=== PATIENT | female | born 1985 | race Caucasian/White ===

== ENCOUNTER 2017-10-16 16:03 | Emergency (ER) | payer OTHER ==
[2017-10-16 16:09] VITALS: BP 137/79; PULSE 98; TEMP 97; BMI 37.0
[2017-10-16] MEDS ORDERED: IBUPROFEN 400 MG TABLET (FP) PO ONE ×2 (16:28)
--- NOTE | 2017-10-16 16:33 | PDOC ---
History of Present Illness - General Chief Complaint: Pain Stated Complaint: RT KNEE PAIN Time Seen by Provider: 10/16/17 16:21 History Source: Patient Exam Limitations: No Limitations - History of Present Illness Initial Comments: 10/16/17 16:28 32 yr female with pain to the right knee for 3 yrs after fall on sidewalk. Pt states she has been seen by orthopedist on and off had MRI of the knee done 7 months ago. Pt dx with "torn ligament" . Pt states 4 days ago she "banged her knee" on the wall in her bathroom. Pt did not take any meds today for pain. Severity: Yes: mild Past History - Past Medical History Allergies/Adverse Reactions: Allergies Allergy/AdvReac Type Severity Reaction Status Date / Time No Known Allergies Allergy Verified 10/16/17 16:08 Home Medications: Ambulatory Orders NK [No Known Home Medication] 10/16/17 Anemia: Yes COPD: No - Reproductive History (#): 1 Para: 1 - Suicide/Smoking/Psychosocial Hx Smoking Status: No Smoking History: Never smoked Number of Cigarettes Smoked Daily: 0 Hx Alcohol Use: Yes (OCCASIONALLY) Drug/Substance Use Hx: No *Physical Exam - Vital Signs Last Vital Signs Temp Pulse Resp BP Pulse Ox 97 F L 98 H 18 137/79 99 10/16/17 16:05 10/16/17 16:05 10/16/17 16:05 10/16/17 16:05 10/16/17 16:05 - Physical Exam General Appearance: Yes: Nourished, Appropriately Dressed HEENT: positive: EOMI, SEJAL Neck: positive: Supple. negative: Tender Respiratory/Chest: negative: Chest Tender Gastrointestinal/Abdominal: negative: Normal Bowel Sounds, Soft Musculoskeletal: positive: Normal Inspection Extremity: positive: Normal Capillary Refill, Normal Inspection, Tender ( lateral right knee ,) ED Treatment Course - RADIOLOGY Radiology Studies Ordered: Category Date Time Status KNEE 3 POS-RIGHT [RAD] Stat Radiology 10/16/17 16:27 Ordered Medical Decision Making - Medical Decision Making 10/16/17 16:30 cc: pain to the knee right acute on chronic no deformity no swelling tender to touch to the lateral knee 10/16/17 16:35 pt refused knee immobilizer refused daniel wrap will give ibuprofen, xray and ortho referal son and the pt agree with plan of care all questions asked and answered. pt ambulatory with no acute distress 10/16/17 19:42 *DC/Admit/Observation/Transfer Diagnosis at time of Disposition: Knee pain, chronic Qualifiers: Laterality: right Qualified Code(s): M25.561 - Pain in right knee - Discharge Dispostion Disposition: HOME Condition at time of disposition: Good - Referrals Referrals: Lauro Salazar MD [Staff Physician] - - Patient Instructions Additional Instructions: follow with or for follow up elevate and apply ice every 2hrs for 20 minutes then apply a warm compress for about 20-30 minutes take ibuprofen every 8hrs for pain as directed (over the counter) - Post Discharge Activity
== END 2017-10-16 16:48 | disposition home or self-care (01) ==
LOC: JERFT 16:03
DX: M25.561 Pain in right knee (principal); W22.01XA Walked into wall, initial encounter; Y93.89 Activity, other specified; Y92.031 Bathroom in apartment as the place of occurrence of the external cause; Y99.8 Other external cause status
CPT/HCPCS: 73562-TC-RT-FY; 99281-25

== ENCOUNTER 2018-02-15 22:43 | Inpatient (IN) | payer OTHER ==
[2018-02-15 22:56] VITALS: BMI 39.0
[2018-02-16] MEDS ORDERED: SODIUM CHLORIDE 1,000 ML IV STA (03:48)
--- NOTE | 2018-02-16 03:49 | PDOC ---
History of Present Illness - General Chief Complaint: Pain Stated Complaint: NAUSEA/VOMITING Time Seen by Provider: 02/16/18 03:25 History Source: Patient - History of Present Illness Initial Comments: 02/16/18 06:54 32 year old female c/o RUQ pain, with nausea/ vomiting for 3 days. denies fever / chills reports feeling " hot" . denies flank pain, urinary symptoms, chest pain Past History - Past Medical History Allergies/Adverse Reactions: Allergies Allergy/AdvReac Type Severity Reaction Status Date / Time No Known Allergies Allergy Verified 02/15/18 22:48 Home Medications: Ambulatory Orders oxyCODONE HCL [Roxicodone -] 5 mg PO Q6H #10 tablet MDD 5 02/16/18 Anemia: Yes COPD: No - Reproductive History (#): 1 Para: 1 - Suicide/Smoking/Psychosocial Hx Smoking Status: No Smoking History: Never smoked Number of Cigarettes Smoked Daily: 0 Hx Alcohol Use: Yes (OCCASIONALLY) Drug/Substance Use Hx: No Review of Systems - Review of Systems Able to Perform ROS?: Yes Is the patient limited Portuguese proficient: No Constitutional: No: Symptoms Reported, See HPI, Chills, Diaphoresis, Fever, Loss of Appetite, Malaise, Night Sweats, Weakness, Weight Stable, Unintentional Wgt. Loss, Unexplained wgt Loss, Other ABD/GI: Yes: Nausea, Vomiting, Abdominal cramping : No: Symptoms Reported, See HPI, Burning, Dysuria, Discharge, Frequency, Flank Pain, Hematuria, Incontinence, Pain, Urgency, Testicular Mass, Testicular Swelling, Lesions, Testicular Pain, Other *Physical Exam - Vital Signs Last Vital Signs Temp Pulse Resp BP Pulse Ox 98.6 F 102 H 18 147/79 98 02/15/18 22:45 02/15/18 22:45 02/15/18 22:45 02/15/18 22:45 02/15/18 22:45 - Physical Exam General Appearance: Yes: Appropriately Dressed Gastrointestinal/Abdominal: positive: Normal Bowel Sounds, Tender (RUQ ), Soft Extremity: positive: Normal Capillary Refill, Normal Inspection, Normal Range of Motion Integumentary: positive: Normal Color, Dry, Warm Neurologic: 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: market development analyst II-XII NML intact, Fully Oriented, Alert, Normal Mood/ Affect ED Treatment Course - LABORATORY CBC & Chemistry Diagram: 02/17/18 06:50 02/17/18 06:50 Progress Note - Progress Note Progress Note: A: RUQ pain r/o cholecystitis P: cbc cmp IVF Zofran pain control patient signed out to aSe [facility]AN pending US *DC/Admit/Observation/Transfer Diagnosis at time of Disposition: Right upper quadrant abdominal pain, Cholecystitis - Discharge Dispostion Disposition: HOME Condition at time of disposition: Improved - Prescriptions - Referrals - Patient Instructions - Post Discharge Activity
[2018-02-16] MEDS ORDERED: ONDANSETRON 4 MG/2 ML VIAL IVPUSH ONE (04:00)
[2018-02-16 04:47] LABS: BASO % 0.4 % (0-2.0); EOS % 0.4 % (0-4.5); HEMOGLOBIN 13.3 GM/dL (10.7-15.3); LYMPH % 7.3 % (8-40); MCH 27.3 pg (25.7-33.7); MCHC 33.2 g/dl (32.0-36.0); MEAN CELL VOLUME 82.2 fl (80-96); MEAN PLT VOLUME 7.5 fl (7.5-11.1); MONO % 4.5 % (3.8-10.2); NEUT % 87.4 % (42.8-82.8); PLATELET COUNT 294 K/MM3 (134-434); RBC 4.86 M/mm3 (3.60-5.2); RDW 15.3 % (11.6-15.6); WHITE BLOOD COUNT 12.1 K/mm3 (4.0-10.0)
[2018-02-16 05:18] LABS: URINE APPEARANCE SLCLOUDY; URINE BILIRUBIN NEGATIVE (<2.0 mg/dL); URINE COLOR YELLOW; URINE GLUCOSE (UA) NEGATIVE (NEGATIVE); URINE KETONE NEGATIVE (NEGATIVE); URINE NITRITE NEGATIVE (NEGATIVE); URINE PROTEIN NEGATIVE (NEGATIVE); URINE UROBILINOGEN NEGATIVE mg/dL (0.2-1.0)
[2018-02-16 05:22] LABS: URINE LEUK ESTERASE 1+ (NEGATIVE)
[2018-02-16 05:23] LABS: EPI CELLS RARE /HPF (FEW); URINE BACTERIA RARE /hpf (NONE SEEN); URINE MUCUS MODERATE
[2018-02-16 05:28] LABS: ALBUMIN 3.5 g/dl (3.4-5.0); ALK PHOS 128 U/L (45-117); ANION GAP 7 MMOL/L (8-16); BILIRUBIN,TOTAL 0.4 mg/dL (0.2-1); BLOOD UREA NITROGEN 8 mg/dL (7-18); CALCIUM 8.5 mg/dL (8.5-10.1); CHLORIDE 105 mmol/L (98-107); CO2 27 mmol/L (21-32); CREATININE 0.5 mg/dL (0.55-1.3); GLUCOSE,RANDOM 103 mg/dL (74-106); LIPASE 73 U/L (73-393); POTASSIUM 3.4 mmol/L (3.5-5.1); SGOT/AST 20 U/L (15-37); SGPT/ALT 38 U/L (13-61); SODIUM 139 mmol/L (136-145); TOT PROT 7.2 g/dl (6.4-8.2)
--- NOTE | 2018-02-16 07:23 | PDOC ---
*Physical Exam - Vital Signs Last Vital Signs Temp Pulse Resp BP Pulse Ox 98.0 F 88 18 146/74 98 02/16/18 06:06 02/16/18 06:06 02/16/18 06:06 02/16/18 06:06 02/16/18 06:06 ED Treatment Course - LABORATORY CBC & Chemistry Diagram: 02/16/18 04:32 02/16/18 04:32 - ADDITIONAL ORDERS Additional order review: Laboratory Results 02/16/18 02/16/18 05:13 04:32 Sodium 139 Potassium 3.4 L Chloride 105 Carbon Dioxide 27 Anion Gap 7 L BUN 8 Creatinine 0.5 L Creat Clearance w eGFR > 60 Random Glucose 103 Calcium 8.5 Total Bilirubin 0.4 AST 20 ALT 38 Alkaline Phosphatase 128 H Total Protein 7.2 Albumin 3.5 Lipase 73 Urine Color Yellow Urine Appearance Slcloudy Urine pH 6.0 Ur Specific [place] 1.016 Urine Protein Negative Urine Glucose (UA) Negative Urine Ketones Negative Urine Blood 2+ H Urine Nitrite Negative Urine Bilirubin Negative Urine Urobilinogen Negative Ur Leukocyte Esterase 1+ H Urine WBC (Auto) 17 Urine RBC (Auto) 3 Ur Epithelial Cells Rare Urine Bacteria Rare Urine Mucus Moderate 02/16/18 04:32 RBC 4.86 MCV 82.2 MCHC 33.2 RDW 15.3 D MPV 7.5 Neutrophils % 87.4 H D Lymphocytes % 7.3 L D Monocytes % 4.5 Eosinophils % 0.4 D Basophils % 0.4 - Medications Given in the ED: ED Medications Discontinued Medications Generic Name Dose Route Start Last Admin Trade Name Freq PRN Reason Stop Dose Admin Sodium Chloride 1,000 mls @ 1,000 mls/hr 02/16/18 03:48 02/16/18 03:50 Normal Saline - IV 02/16/18 04:47 1,000 mls/hr ASDIR STA Administration Ondansetron HCl 4 mg 02/16/18 04:00 02/16/18 04:05 Zofran Injection IVPUSH 02/16/18 04:01 4 mg ONCE ONE Administration Medical Decision Making - Medical Decision Making 02/16/18 07:25 Patient received from DUSTIN Thomson. Briefly, this is a healthy 32-year-old female with 3 days of RUQ pain, worse after eating. Subjective fever. Labs notable for WBC 12.1. HR 102. Pending u/s to r/o cholecystitis. As patient has been in ED >8h awaiting u/s, will place in ED Observation. 02/16/18 09:49 U/s with 3cm gallstone and wall thickening. Discussed with Dr. Cullen who will take to OR, possibly today. Requests Cefazolin. Morphine given. *DC/Admit/Observation/Transfer Diagnosis at time of Disposition: Right upper quadrant abdominal pain, Cholecystitis - Discharge Dispostion Condition at time of disposition: Guarded Decision to Admit order: Yes - Referrals - Patient Instructions - Post Discharge Activity
[2018-02-16] MEDS ORDERED: morphine CARPU-JECT 4 MG/1 ML DISP.SYRIN IVPUSH ONE (07:38)
--- NOTE | 2018-02-16 08:51 | HP ---
CHIEF COMPLAINT:Abdominal pain PCP:none HISTORY OF PRESENT ILLNESS: 32F denies PMH presents to the ER with 3 day history of nausea vomiting and abdominal pain after eating. Patient is Bruneian speaking and presents with her daughter who speaks Cuban and Bruneian. She states her mild pain progressed to severe pain and eventually she started to become nauseated and vomited. She vomited NB/NB recently ingested food. She denies fever but felt hot on and off for the past 2 days. She denies fever, chest pain, shortness of breath, lower extremity edema, or urinary symptoms. Daughter states her mother does not eat a "healthy diet". She deies being on medications. Endorses she had a history of oophrectomy due to cancer. ER course was notable for: (1)Labs (2)IVF (3)ABx RUQ US Recent Travel:Denies PAST MEDICAL HISTORY: questionable ovarian Ca PAST SURGICAL HISTORY:oophrectomy Social History: Smoking:Denies Alcohol:Denies Drugs: Denies Family History: Allergies No Known Allergies Allergy (Verified 02/15/18 22:48) HOME MEDICATIONS: Home Medications Medication Instructions Recorded NK [No Known Home Medication] 10/16/17 REVIEW OF SYSTEMS CONSTITUTIONAL: Absent: fever,diaphoresis, generalized weakness, malaise, loss of appetite, weight change Present: chills HEENT: Absent: rhinorrhea, nasal congestion, throat pain, throat swelling, difficulty swallowing, mouth swelling, ear pain, eye pain, visual changes CARDIOVASCULAR: Absent: chest pain, syncope, palpitations, irregular heart rate, lightheadedness , peripheral edema RESPIRATORY: Absent: cough, shortness of breath, dyspnea with exertion, orthopnea, wheezing, stridor, hemoptysis GASTROINTESTINAL: Absent: abdominal distension, diarrhea, constipation, melena, hematochezia Present: abdominal pain, nausea, vomiting GENITOURINARY: Absent: dysuria, frequency, urgency, hesitancy, hematuria, flank pain, genital pain MUSCULOSKELETAL: Absent: myalgia, arthralgia, joint swelling, back pain, neck pain SKIN: Absent: rash, itching, pallor HEMATOLOGIC/IMMUNOLOGIC: Absent: easy bleeding, easy bruising, lymphadenopathy, frequent infections ENDOCRINE: Absent: unexplained weight gain, unexplained weight loss, heat intolerance, cold intolerance NEUROLOGIC: Absent: headache, focal weakness or paresthesias, dizziness, unsteady gait, seizure, mental status changes, bladder or bowel incontinence PSYCHIATRIC: Absent: anxiety, depression, suicidal or homicidal ideation, hallucinations. PHYSICAL EXAMINATION Vital Signs - 24 hr 02/15/18 02/16/18 02/16/18 22:45 03:30 06:06 Temperature 98.6 F 98.4 F 98.0 F Pulse Rate 102 H Pulse Rate [ 98 H 88 Left Radial] Respiratory 18 18 18 Rate Blood Pressure 147/79 Blood Pressure 148/82 146/74 [Left Arm] O2 Sat by Pulse 98 98 98 Oximetry (%) 02/16/18 08:36 Temperature 99.2 F Pulse Rate Pulse Rate [ 95 H Left Radial] Respiratory 16 Rate Blood Pressure Blood Pressure 140/96 [Left Arm] O2 Sat by Pulse 99 Oximetry (%) GENERAL: Awake, alert, and fully oriented, in no acute distress. HEAD: Normal with no signs of trauma. EYES: Pupils equal, round and reactive to light, extraocular movements intact, sclera anicteric, conjunctiva clear. No lid lag. EARS, NOSE, THROAT: Ears normal, nares patent, oropharynx clear without exudates. Moist mucous membranes. NECK: Normal range of motion, supple without lymphadenopathy, JVD, or masses. LUNGS: Breath sounds equal, clear to auscultation bilaterally. No wheezes, and no crackles. No accessory muscle use. HEART: Regular rate and rhythm, normal S1 and S2 without murmur, rub or gallop. ABDOMEN: Soft, nontender, not distended, normoactive bowel sounds, no guarding, no rebound, no masses. No hepatomegaly or splenomegaly. MUSCULOSKELETAL: Normal range of motion at all joints. No bony deformities or tenderness. No CVA tenderness. UPPER EXTREMITIES: 2+ pulses, warm, well-perfused. No cyanosis. No clubbing. No peripheral edema. LOWER EXTREMITIES: 2+ pulses, warm, well-perfused. No calf tenderness. No peripheral edema. NEUROLOGICAL: Cranial nerves II-XII intact. Normal speech. Normal gait. PSYCHIATRIC: Cooperative. Good eye contact. Appropriate mood and affect. SKIN: Warm, dry, normal turgor, no rashes or lesions noted, normal capillary refill. Laboratory Results - last 24 hr 02/16/18 02/16/18 02/16/18 04:32 04:32 05:13 WBC 12.1 H RBC 4.86 Hgb 13.3 Hct 40.0 D MCV 82.2 MCH 27.3 D MCHC 33.2 RDW 15.3 D Plt Count 294 MPV 7.5 Absolute Neuts (auto) 10.6 H Neutrophils % 87.4 H D Lymphocytes % 7.3 L D Monocytes % 4.5 Eosinophils % 0.4 D Basophils % 0.4 Nucleated RBC % 0 Sodium 139 Potassium 3.4 L Chloride 105 Carbon Dioxide 27 Anion Gap 7 L BUN 8 Creatinine 0.5 L Creat Clearance w eGFR > 60 Random Glucose 103 Calcium 8.5 Total Bilirubin 0.4 AST 20 ALT 38 Alkaline Phosphatase 128 H Total Protein 7.2 Albumin 3.5 Lipase 73 Urine Color Yellow Urine Appearance Slcloudy Urine pH 6.0 Ur Specific [place] 1.016 Urine Protein Negative Urine Glucose (UA) Negative Urine Ketones Negative Urine Blood 2+ H Urine Nitrite Negative Urine Bilirubin Negative Urine Urobilinogen Negative Ur Leukocyte Esterase 1+ H Urine WBC (Auto) 17 Urine RBC (Auto) 3 Ur Epithelial Cells Rare Urine Bacteria Rare Urine Mucus Moderate RUQ US: GB wall thickening, no pericholecystic fluid. 3mm stone ASSESSMENT/PLAN: 32F with abdominal pain found to have symptomatic biliary colic and cholecystitis: sepsis from acute cholecystitis:patient may also have a component of symptomatic biliary colic patient had HR >90 WBC>12 Admit to inpatient med/surg seen by Dr. murry who will take patient to the OR today for laparoscopic cholecystectomy possible open NPO for now IVF ABx per surgery antiemetics pain control History of ovarian cancer s/p oophrectomy FEN: LR @ 100ml/hr hypokalemia: likely from vomiting-replete after OR NPO for now PPx: HSQ/SCDs no GI PPx indicated early ambulation Case discussed with Dr. Zacarias Visit type - Emergency Visit Emergency Visit: Yes ED Registration Date: 02/16/18 Care time: The patient presented to the Emergency Department on the above date and was hospitalized for further evaluation of their emergent condition. - New Patient This patient is new to me today: Yes Date on this admission: 02/16/18 - Critical Care Critical Care patient: No
[2018-02-16] MEDS ORDERED: morphine SULFATE 4 MG/ML VIAL ONE (09:38)
[2018-02-16] MEDS ORDERED: CEFAZOLIN 1 GM in DEXTROSE 5%-WATER - 50 ML IVPB ONE (09:47)
[2018-02-16] MEDS ORDERED: ceFAZolin SODIUM 1 GM VIAL ONE (10:09)
[2018-02-16] MEDS ORDERED: BUPIVACAINE HCL/PF 0.5% (5MG/ML) 10 ML VIAL ONE (10:40)
--- NOTE | 2018-02-16 10:55 | CONSULT ---
- Consultation REQUESTING PROVIDER: CONSULT REQUEST: We have been asked to surgically evaluate this patient for abdominal pain. 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 PMHx: none PSHx: ? 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; right knee arthroscopy Home Medications Medication Instructions Recorded NK [No Known Home Medication] 10/16/17 Allergies Allergy/AdvReac Type Severity Reaction Status Date / Time No Known Allergies Allergy Verified 02/15/18 22:48 REVIEW OF SYSTEMS: CONSTITUTIONAL: Absent: fever, chills, diaphoresis, generalized weakness, malaise, loss of appetite, weight change GASTROINTESTINAL: Absent: abdominal pain, abdominal distension, nausea, vomiting, diarrhea, constipation, melena, hematochezia GENITOURINARY: Absent: dysuria, frequency, urgency, hesitancy, hematuria, flank pain, genital pain MUSCULOSKELETAL: Present: right knee arthralgia, joint swelling, SKIN: Absent: rash, itching, pallor HEMATOLOGIC/IMMUNOLOGIC: Absent: easy bleeding, easy bruising, lymphadenopathy NEUROLOGIC: Absent: headache, focal weakness, paresthesias, dizziness, unsteady gait, seizure, mental status changes, bladder or bowel incontinence PSYCHIATRIC: Absent: anxiety, depression, suicidal or homicidal ideation, hallucinations. PHYSICAL EXAM: GENERAL: Awake, alert, and fully oriented, in slight distress. HEAD: Normal with no signs of trauma. EYES:sclera anicteric, conjunctiva clear. NECK: Normal ROM, supple without lymphadenopathy, JVD, or masses. ABDOMEN: Soft,tender RUQ ttp w/guarding, not distended, normoactive bowel sounds , no guarding, no rebound, no masses. No organomegaly. No hernias; healed Pfannensteil incision MUSCULOSKELETAL: No bony deformities or tenderness. No CVA tenderness. UPPER EXTREMITIES: 2+ pulses, warm, well-perfused. No cyanosis. Cap refill <2 seconds. No peripheral edema. LOWER EXTREMITIES: 2+ pulses, warm, well-perfused. No calf tenderness. No peripheral edema. NEUROLOGICAL: Normal speech, gait not observed. PSYCH: Cooperative. Good eye contact. Appropriate mood and affect. SKIN: Warm, dry, normal turgor, no rashes or lesions noted. Vital Signs Temperature 99.2 F 02/16/18 08:36 Pulse Rate 95 H 02/16/18 08:36 Respiratory Rate 16 02/16/18 08:36 Blood Pressure 140/96 02/16/18 08:36 O2 Sat by Pulse Oximetry (%) 99 02/16/18 08:36 Lab Results WBC 12.1 K/mm3 (4.0-10.0) H 02/16/18 04:32 RBC 4.86 M/mm3 (3.60-5.2) 02/16/18 04:32 Hgb 13.3 GM/dL (10.7-15.3) 02/16/18 04:32 Hct 40.0 % (32.4-45.2) D 02/16/18 04:32 MCV 82.2 fl (80-96) 02/16/18 04:32 MCHC 33.2 g/dl (32.0-36.0) 02/16/18 04:32 RDW 15.3 % (11.6-15.6) D 02/16/18 04:32 Plt Count 294 K/MM3 (134-434) 02/16/18 04:32 Sodium 139 mmol/L (136-145) 02/16/18 04:32 Potassium 3.4 mmol/L (3.5-5.1) L 02/16/18 04:32 Chloride 105 mmol/L (98-107) 02/16/18 04:32 Carbon Dioxide 27 mmol/L (21-32) 02/16/18 04:32 Anion Gap 7 MMOL/L (8-16) L 02/16/18 04:32 BUN 8 mg/dL (7-18) 02/16/18 04:32 Creatinine 0.5 mg/dL (0.55-1.3) L 02/16/18 04:32 Random Glucose 103 mg/dL (74-106) 02/16/18 04:32 Calcium 8.5 mg/dL (8.5-10.1) 02/16/18 04:32 US-cholelithiasis IMP: acute cholecystitis/cholelithiasis/symptomatic biliary colic PLAN: Admit for lap dusty possible open; d/w patient and her daughter Jannet in Khmer and Polish r/b/t/a's to surgery and they wish to proceed w/operative intervention; all ?'s answered; informed consent will be obtained. Artem Cullen MD FACS
[2018-02-16] MEDS ORDERED: ONDANSETRON 4 MG/2 ML VIAL IVPUSH PRN ×2 (10:58→16:30)
[2018-02-16] MEDS ORDERED: LACTATED RINGERS SOLUTION 1,000 ML/1,000 ML INFUS.BAG IV SCH (11:15)
[2018-02-16] MEDS ORDERED: SUCCINYLCHOLINE CHLORIDE 200 MG/10 ML VIAL ONE (11:37)
[2018-02-16] MEDS ORDERED: ROCURONIUM BROMIDE 50 MG/5 ML VIAL ONE (11:37)
[2018-02-16] MEDS ORDERED: MIDAZOLAM HCL 2 MG/2 ML SINGLE DOSE VIAL ONE (11:37)
[2018-02-16] MEDS ORDERED: fentaNYL CITRATE 250 MCG/5 ML VIAL ONE (11:37)
[2018-02-16] MEDS ORDERED: DEXAMETHASONE SOD PHOSPHATE 4 MG/1 ML VIAL ONE (11:58)
[2018-02-16] MEDS ORDERED: BUPIVACAINE HCL/PF 0.5% (5MG/ML) 10 ML VIAL IJ ONE ×3 (12:37)
--- NOTE | 2018-02-16 13:19 | PN ---
Teaching Attending Note Name of Resident: Ori Piper ATTENDING PHYSICIAN STATEMENT I saw and evaluated the patient. I reviewed the resident's note and discussed the case with the resident. I agree with the resident's findings and plan as documented. SUBJECTIVE: This is a 32 year old woman with a history of ovarian surgery ( possible cancer, cyst) who comes to the ED complaining of abdominal pain, nausea , vomiting after eating. She denies fever, hematemesis, diarrhea, constipation, rectal bleeding, melena. OBJECTIVE: Vital Signs Period Temp Pulse Resp BP Sys/Gardiner Pulse Ox Last 24 Hr 98.0 F-99.2 F 83-102 16-18 127-148/74-96 98-99 HEART: S1S2, tachycardic LUNGS: Clear ABDOMEN: Obese, soft, non-distended, (+) RUQ tenderness, normal BS EXTREMITIES: No edema Laboratory Tests 02/16/18 02/16/18 02/16/18 04:32 04:32 05:13 WBC 12.1 H RBC 4.86 Hgb 13.3 Hct 40.0 D MCV 82.2 MCH 27.3 D MCHC 33.2 RDW 15.3 D Plt Count 294 MPV 7.5 Absolute Neuts (auto) 10.6 H Neutrophils % 87.4 H D Lymphocytes % 7.3 L D Monocytes % 4.5 Eosinophils % 0.4 D Basophils % 0.4 Nucleated RBC % 0 Sodium 139 Potassium 3.4 L Chloride 105 Carbon Dioxide 27 Anion Gap 7 L BUN 8 Creatinine 0.5 L Creat Clearance w eGFR > 60 Random Glucose 103 Calcium 8.5 Total Bilirubin 0.4 AST 20 ALT 38 Alkaline Phosphatase 128 H Total Protein 7.2 Albumin 3.5 Lipase 73 Serum , Qual Urine Color Yellow Urine Appearance Slcloudy Urine pH 6.0 Ur Specific [place] 1.016 Urine Protein Negative Urine Glucose (UA) Negative Urine Ketones Negative Urine Blood 2+ H Urine Nitrite Negative Urine Bilirubin Negative Urine Urobilinogen Negative Ur Leukocyte Esterase 1+ H Urine WBC (Auto) 17 Urine RBC (Auto) 3 Ur Epithelial Cells Rare Urine Bacteria Rare Urine Mucus Moderate 02/16/18 10:10 WBC RBC Hgb Hct MCV MCH MCHC RDW Plt Count MPV Absolute Neuts (auto) Neutrophils % Lymphocytes % Monocytes % Eosinophils % Basophils % Nucleated RBC % Sodium Potassium Chloride Carbon Dioxide Anion Gap BUN Creatinine Creat Clearance w eGFR Random Glucose Calcium Total Bilirubin AST ALT Alkaline Phosphatase Total Protein Albumin Lipase Serum , Qual Negative Urine Color Urine Appearance Urine pH Ur Specific [place] Urine Protein Urine Glucose (UA) Urine Ketones Urine Blood Urine Nitrite Urine Bilirubin Urine Urobilinogen Ur Leukocyte Esterase Urine WBC (Auto) Urine RBC (Auto) Ur Epithelial Cells Urine Bacteria Urine Mucus Home Medications Medication Instructions Recorded NK [No Known Home Medication] 10/16/17 ASSESSMENT AND PLAN: This is a 32 year old woman with a history of ovarian surgery (possible cancer, cyst) who presented to the ED with abdominal pain, nausea, vomiting after eating. 1. Sepsis (WBC 12.1, tachycardia) secondary to acute cholecystitis - Given Ancef in ED - IV fluid - Plan for lap dusty today
--- NOTE | 2018-02-16 14:59 | OP ---
Operative Note - Note: Operative Date: 02/16/18 Pre-Operative Diagnosis: acute cholecystitis/cholelithiasis Operation: Laparoscopic cholecystectomy Findings: as dictated Post-Operative Diagnosis: Same as Pre-op Surgeon: Artem Cullen Volunteer Coordinator: Eloy Doyle (Floridalma Lynne PA-C) Anesthesiologist/RACK CARRIER: Murtaza Evangelista Anesthesia: General, Local (20 cc .25% Marcaine injected to incision sites at completion of case) Specimens Removed: Gallbladder Estimated Blood Loss (mls): 30 (mls) Drains & Tubes with Location: none Fluid Volume Replaced (mls): 1,700 (ml) Operative Report Dictated: Yes
[2018-02-16] MEDS ORDERED: KETOROLAC TROMETHAMINE 30 MG/1 ML VIAL IVPUSH ONE (15:01)
--- NOTE | 2018-02-16 15:03 | SURG ---
Surgery Trader Note Trader: Eloy Doyle PA-C (Suzy) Date of Service: 02/16/18 Diagnosis: acute cholecystitis, cholelithiasis Procedure: Laparoscopic cholecystectomy I was present for the entirety of the operative procedure. For further detail, please refer to operative report. Visit type - Case Type Case Type: ED Admission - Emergency Emergency Visit: Yes ED Registration Date: 02/16/18 Care time: The patient presented to the Emergency Department on the above date and was hospitalized for further evaluation of their emergent condition. - New patient This patient is new to me today: Yes Date on this admission: 02/16/18 - Critical Care Critical Care patient: No
[2018-02-16] MEDS ORDERED: oxyCODONE HCL 5 MG TABLET PO PRN (15:27)
[2018-02-16] MEDS: LACTATED RINGERS SOLUTION 1,000 ML/1,000 ML INFUS.BAG IV SCH ×2 (16:15→21:50)
[2018-02-16] MEDS ORDERED: HEPARIN NA (PORCINE) 5,000 UNITS/ML 1ML VIAL SQ SCH (18:00)
[2018-02-16] MEDS ORDERED: FLU VACCINE QUAD 60 MCG/0.5 ML (MDV 18-19) IM ONE (18:15)
[2018-02-16] MEDS: HEPARIN NA (PORCINE) 5,000 UNITS/ML 1ML VIAL SQ SCH (21:51)
--- NOTE | 2018-02-16 21:53 | EKG ---
Test Reason : Blood Pressure : / mmHG Vent. Rate : 090 BPM Atrial Rate : 090 BPM P-R Int : 164 ms QRS Dur : 090 ms QT Int : 404 ms P-R-T Axes : 020 061 024 degrees QTc Int : 494 ms NORMAL SINUS RHYTHM PROLONGED QT ABNORMAL ECG NO PREVIOUS ECGS AVAILABLE Confirmed by CLINT IQBAL MD ([id number]) on 02/16/2018 9:53:30 PM Referred By: Confirmed By:CLINT IQBAL MD
[2018-02-17] MEDS: HEPARIN NA (PORCINE) 5,000 UNITS/ML 1ML VIAL SQ SCH ×2 (05:35→14:07)
[2018-02-17] MEDS: LACTATED RINGERS SOLUTION 1,000 ML/1,000 ML INFUS.BAG IV SCH (05:35)
--- NOTE | 2018-02-17 07:49 | PN ---
Progress Note (short form) - Note Progress Note: POD #1 Alert. Siting up in bed. C/o mild incisional tenderness. Adequate pain control via prn meds. She has been oob and ambulating unassisted. Voiding spontaneously. Tolerating clear liquids. Denies n/v/f/c, CP or SOB. Last Vital Signs Temp Pulse Resp BP Pulse Ox 98.6 F 96 H 18 143/93 100 02/17/18 06:54 02/17/18 06:54 02/17/18 06:54 02/17/18 06:54 02/16/18 21:00 Gen: alert. nad. ABD: all surgical ports c/d/i. No hematoma LE: SCDs bilat. soft. nt Problem List - Problems (1) S/P laparoscopic cholecystectomy Assessment/Plan: Regular diet Cont oob and ambulate Incentive spirometer f/u w/ Dr. Cullen outlined in dc planning section. Cleared for dc home today after tolerates diet. On behalf of Dr. Cullen, thank you for the opportunity to participate in your patient's care. Code(s): Z90.49 - ACQUIRED ABSENCE OF OTHER SPECIFIED PARTS OF DIGESTIVE TRACT (2) Cholecystitis Code(s): K81.9 - CHOLECYSTITIS, UNSPECIFIED
[2018-02-17 08:23] LABS: ANION GAP 7 MMOL/L (8-16); BLOOD UREA NITROGEN 6 mg/dL (7-18); CALCIUM 7.9 mg/dL (8.5-10.1); CHLORIDE 104 mmol/L (98-107); CO2 29 mmol/L (21-32); CREATININE 0.5 mg/dL (0.55-1.3); GLUCOSE,RANDOM 98 mg/dL (74-106); MAGNESIUM 1.9 mg/dL (1.8-2.4); PHOSPHOROUS 3.6 mg/dL (2.5-4.9); POTASSIUM 3.8 mmol/L (3.5-5.1); SODIUM 140 mmol/L (136-145)
[2018-02-17 08:26] LABS: HEMATOCRIT 37.8 % (32.4-45.2); HEMOGLOBIN 12.2 GM/dL (10.7-15.3); MCH 26.7 pg (25.7-33.7); MCHC 32.4 g/dl (32.0-36.0); MEAN CELL VOLUME 82.4 fl (80-96); MEAN PLT VOLUME 7.5 fl (7.5-11.1); PLATELET COUNT 272 K/MM3 (134-434); RBC 4.59 M/mm3 (3.60-5.2); WHITE BLOOD COUNT 11.1 K/mm3 (4.0-10.0)
[2018-02-17] MEDS: oxyCODONE HCL 5 MG TABLET PO PRN ×2 (09:26→13:42)
[2018-02-17 09:50] VITALS: TEMP 99
[2018-02-17 15:46] VITALS: BP 113/95; PULSE 113
--- NOTE | 2018-02-17 15:53 | DS ---
Physical Exam: SUBJECTIVE: Patient seen and examined OBJECTIVE: Vital Signs Period Temp Pulse Resp BP Sys/Gardiner Pulse Ox Last 24 Hr 98.1 F-99.0 F 96-118 11-20 113-149/79-96 99-100 PHYSICAL EXAM GENERAL: The patient is awake, alert, and fully oriented, in no acute distress. HEAD: Normal with no signs of trauma. EYES: PERRL, extraocular movements intact, sclera anicteric, conjunctiva clear. ENT: Ears normal, nares patent, oropharynx clear without exudates, moist mucous membranes. NECK: Trachea midline, full range of motion, supple. LUNGS: Breath sounds equal, clear to auscultation bilaterally, no wheezes, no crackles, no accessory muscle use. HEART: Regular rate and rhythm, S1, S2 without murmur, rub or gallop. ABDOMEN: Soft, nontender, nondistended, normoactive bowel sounds, no guarding, no rebound, no hepatosplenomegaly, no masses. EXTREMITIES: 2+ pulses, warm, well-perfused, no edema. NEUROLOGICAL: Cranial nerves II through XII grossly intact. Normal speech, gait not observed. PSYCH: Normal mood, normal affect. SKIN: Warm, dry, normal turgor, no rashes or lesions noted. LABS Laboratory Results - last 24 hr 02/17/18 02/17/18 06:50 06:50 WBC 11.1 H RBC 4.59 Hgb 12.2 Hct 37.8 MCV 82.4 MCH 26.7 MCHC 32.4 RDW 15.0 Plt Count 272 MPV 7.5 Sodium 140 Potassium 3.8 Chloride 104 Carbon Dioxide 29 Anion Gap 7 L BUN 6 L Creatinine 0.5 L Creat Clearance w eGFR > 60 Random Glucose 98 Calcium 7.9 L Phosphorus 3.6 Magnesium 1.9 HOSPITAL COURSE: Date of Admission:02/16/18 Date of Discharge: 02/17/18 Discharge Summary Reason For Visit: RIGHT UPPER QUADRANT ABDOMINAL PAIN Current Active Problems Cholecystitis (Acute) S/P laparoscopic cholecystectomy (Acute) Sepsis (Acute) Condition: Improved - Instructions Diet, Activity, Other Instructions: Dr. Cullen Discharge Instructions Dear MARIBETH MENDOZA, Post Operative Instructions Physical activity Resume your normal everyday activity as tolerated no heavy lifting or exercise until seen by your surgeon. You may walk unlimited amounts of and climb stairs. You may resume driving the car when you feel safe and comfortable behind the wheel. Wound care If you have a bandage, leave it on, and keep dry for 48 - 72 hours. After that time discard the outer bandage. If there are tapes on the skin under the outer bandage, leave them in place. They will peel off in the next 7 to 10 days. Do Not peel them off. You may shower 2 days after surgery. If there are tapes present on the skin, they can get wet. Do not go into pools/hot tubs or bath tubs, do not submerge the incision in water until cleared by your surgeon as it can lead to infection. Diet There are no dietary restrictions. Eat healthy, high-fiber foods. Drink 6 to 8 glasses of liquid each day. This will assist in keeping your bowels are regular , especially if you are taking narcotic pain medications as constipation is a common side effect. Pain management You may take Tylenol (acetaminophen) or Ibuprofen (for example, Motrin, Advil etc.) for pain. Take according to the user interface designer's instructions. Do not exceed 3g (3000mg) of Tylenol in 24 hours as this can lead to liver damage/ failure. Any pain prescription medication ordered should be taken as prescribed for moderate to severe pain. Do not drive, drink alcohol or operate heavy machinery while taking narcotic pain medications. Call Dr. Cullen for any of the following: Severe pain not relieved by medication Fever of 101 or higher Excessive bleeding or drainage on dressing Inability to urinate Istop report: Reference #: [id number] Call the office at [phone] for a post operative appointment in 7 - 10 days. Referrals: Ralph Cameron MD [Staff Physician] - Disposition: HOME - Home Medications Comprehensive Discharge Medication List: Ambulatory Orders oxyCODONE HCL [Roxicodone -] 5 mg PO Q6H #10 tablet MDD 5 02/16/18
--- NOTE | 2018-02-20 12:25 | PATH ---
Surgical Pathology Report Patient Name: MARIBETH MENDOZA [facility]. Rec. #: [id number] /Age/Gender: 1985 (Age: 32) / F Account: [id number] Location: [address] [place] [address] Taken: 02/16/2018 Received: 02/17/2018 Reported: 02/20/2018 Physicians: Artem Cullen MD PHYSICIAN EMERGENCY DEPT Specimen(s) Received GALLBLADDER AND CONTENTS Clinical History Right upper quadrant abdominal pain Final Diagnosis GALLBLADDER, LAPAROSCOPIC CHOLECYSTECTOMY: CHRONIC CHOLECYSTITIS, CHOLELITHIASIS, AND CHOLESTEROLOSIS. ONE BENIGN PERIDUCTAL LYMPH NODE (0/1). Electronically Signed Jannet Siegel M.D. Gross Description Received in formalin, labeled "gallbladder and contents," is a 7.0 x 3.5 x 3.5 cm. gallbladder with a 0.2 cm. in length portion of cystic duct attached. There is a 1.0 cm in greatest dimension brown periductal possible lymph node present. The outer surface is nelson-zimmerman with a focal defect and varies from smooth to shaggy. The lumen contains brown sludgelike bile as well as a 4.0 cm in greatest dimension green, ovoid cholelith. The mucosa is green and focally eroded. The wall of the gallbladder averages 0.3 cm. in thickness. Private Duty Rn sections are submitted in 2 cassettes as follows: 1-cystic duct margin and one bisected possible lymph node; 2-major account representative gallbladder. /02/17/2018 saudi02/17/2018
--- NOTE | 2018-02-20 22:08 | OP ---
DATE OF OPERATION: 02/16/2018 PREOPERATIVE DIAGNOSIS: Acute cholecystitis and cholelithiasis. POSTOPERATIVE DIAGNOSIS: Acute cholecystitis and cholelithiasis. PROCEDURE: Laparoscopic cholecystectomy. SURGEON: Artem Cullen MD TIMBER FELLER: Fabienne Doyle PA-C ANESTHESIA: General. OPERATIVE FINDINGS: Acute cholecystitis and cholelithiasis. The rest of the findings were unremarkable. DESCRIPTION OF PROCEDURE: The patient was placed on the operating room table in supine position. After the induction of general anesthesia, the patient's abdomen was prepped with ChloraPrep and draped in sterile fashion. Time-out was taken and then pneumoperitoneum established above the umbilicus using a Veress needle. Once 15 mm of intra-abdominal pressure was obtained, a 5-mm port was placed at the umbilicus. Additional lateral 5-mm ports and a subxiphoid 12-mm port were placed and laparoscopy carried out, and the previously noted findings were observed. The gallbladder was placed on cephalad and lateral traction, and dissection was begun at the neck of the gallbladder where the peritoneum was opened medially and laterally using blunt and sharp dissection and electrocautery. Dissection continued in the triangle of Calot where the cystic duct was identified coursing from the neck of the gallbladder distally to the common bile duct. It was dissected proximally and distally for length. Similarly, the anterior and posterior branches of the cystic artery were similarly identified and dissected. A critical view of safety was taken, and then the cystic duct divided proximally and distally using Endo Aysha after it was clipped twice proximally and distally with large hemoclips. The cystic artery and branches were similarly clipped and divided. Hemostasis was checked for and noted to be good and then the gallbladder was removed from the liver bed in a retrograde fashion using electrocautery. Prior to removal from the edge of the liver, hemostasis was again verified and then the gallbladder removed from the edge of the liver, placed in an EndoCatch, and brought out through the subxiphoid port. Pneumoperitoneum was reestablished, hemostasis verified again, and then the 5-mm lateral and subxiphoid ports were removed under laparoscopic vision without evidence of bleeding from the port sites. The umbilical port was removed and the pneumoperitoneum evacuated. All port sites were infiltrated with 0.5% Marcaine and the skin edges closed with 4-0 Biosyn in a subcuticular and continuous fashion. Steri-Strips and Band-Aid dressings were placed and the procedure terminated at this point and the patient aroused from general anesthesia and transferred to the post anesthesia care unit in stable condition awake and alert. ESTIMATED BLOOD LOSS: 30 mL. REPLACEMENTS: Crystalloid. DRAINS: None. SPECIMENS: Gallbladder and contents to pathology. I, Artem Cullen, was physically present in the operating room from the time the patient was placed on the operating room table until she was transferred to the post anesthesia care unit in my accompaniment. MD ALIRIO Flanagan/[id number] MTDD
== END 2018-02-17 16:59 | disposition home or self-care (01) | DRG 263 ==
LOC: JER 22:43 → JERBED 02-16 07:23 → OBSVTOIN 02-16 10:58 → J6S 02-16 12:10
PROVIDERS: ADMIT Internal Medicine; ATTEND Internal Medicine
PROC: 0FT44ZZ Resection of Gallbladder, Percutaneous Endoscopic Approach (ICD-10-PCS; principal; 2018-02-16 13:00)
DX: K80.00 Calculus of gallbladder with acute cholecystitis without obstruction (principal); R00.0 Tachycardia, unspecified; E66.9 Obesity, unspecified; Z68.39 Body mass index [BMI] 39.0-39.9, adult; E87.6 Hypokalemia; D72.829 Elevated white blood cell count, unspecified; D64.9 Anemia, unspecified; R11.2 Nausea with vomiting, unspecified; Z85.43 Personal history of malignant neoplasm of ovary
CPT/HCPCS: 36415; 76705-TC; 80048; 80053; 81003; 81015; 83690; 83735; 84100; 84703; 85025; 85027; 88304-TC; 90688; 93005; 93010; 94760; 99285-25; G0008; G0378; J1644; J7030

== ENCOUNTER 2020-12-16 14:18 | Emergency (ER) | payer OTHER ==
[2020-12-16 14:42] VITALS: BP 130/83; PULSE 69; TEMP 97.7; BMI 38.0
[2020-12-16] MEDS ORDERED: FLUORESCEIN NA 1 EA STRIP ONE ×2 (15:53→15:58)
== END 2020-12-16 17:04 | disposition home or self-care (01) ==
LOC: JERFT 14:18
DX: H11.432 Conjunctival hyperemia, left eye (principal)
CPT/HCPCS: 99283-25

== ENCOUNTER 2021-04-29 16:57 | Emergency (ER) | payer OTHER ==
[2021-04-29 17:41] VITALS: BP 118/80; PULSE 98; TEMP 98.2; BMI 38.0
[2021-04-29] MEDS ORDERED: METOCLOPRAMIDE HCL INJECTION 10 MG/2 ML VIAL IVPUSH ONE ×2 (18:45→19:59)
[2021-04-29] MEDS ORDERED: KETOROLAC TROMETHAMINE 30 MG/1 ML VIAL IVPUSH ONE (18:45)
[2021-04-29] MEDS ORDERED: SODIUM CHLORIDE 0.9% 500 ML INFUS.BAG IV ONE (18:45)
[2021-04-29] MEDS ORDERED: METOCLOPRAMIDE HCL INJECTION 10 MG/2 ML VIAL ONE (18:46)
[2021-04-29] MEDS ORDERED: KETOROLAC TROMETHAMINE 30 MG/1 ML VIAL ONE (18:46)
[2021-04-29] MEDS ORDERED: ACETAMINOPHEN 500 MG TABLET (FP) PO ONE (19:59)
== END 2021-04-29 22:25 | disposition home or self-care (01) ==
LOC: JERFT 16:57
PROC: 3E033GC Introduction of Other Therapeutic Substance into Peripheral Vein, Percutaneous Approach (ICD-10-PCS; principal; 2021-04-29)
PROC: 3E0337Z Introduction of Electrolytic and Water Balance Substance into Peripheral Vein, Percutaneous Approach (ICD-10-PCS; 2021-04-29)
PROC: 3E033GC Introduction of Other Therapeutic Substance into Peripheral Vein, Percutaneous Approach (ICD-10-PCS; 2021-04-29)
DX: R51.9 Headache, unspecified (principal)
CPT/HCPCS: 70450-TC; 99284-25

== ENCOUNTER 2023-04-08 14:28 | Emergency (ER) | payer OTHER ==
[2023-04-08 14:38] VITALS: BP 140/88; PULSE 109; RESP 18; TEMP 98.2; BMI 47.2
[2023-04-08] MEDS ORDERED: DIPHTH,PERTUSS(ACELL),TET 0.5 ML DISP.SYRIN IM ONE ×2 (16:06→16:07)
== END 2023-04-08 17:08 | disposition home or self-care (01) ==
LOC: JERFT 14:28
PROC: 0HQGXZZ Repair Left Hand Skin, External Approach (ICD-10-PCS; principal; 2023-04-08)
PROC: 3E0234Z Introduction of Serum, Toxoid and Vaccine into Muscle, Percutaneous Approach (ICD-10-PCS; 2023-04-08)
DX: S61.412A Laceration without foreign body of left hand, initial encounter (principal); S99.922A Unspecified injury of left foot, initial encounter; M79.672 Pain in left foot; W10.8XXA Fall (on) (from) other stairs and steps, initial encounter
CPT/HCPCS: 12002-25; 73130-TC-LT-FY; 73630-TC-LT; 90471; 90715; 99284-25

== ENCOUNTER 2023-09-20 12:56 | Emergency (ER) | payer OTHER ==
[2023-09-20 13:07] VITALS: TEMP 98.1; BMI 39.6
[2023-09-20] MEDS ORDERED: ACETAMINOPHEN 325 MG TABLET (FP) ONE (13:51)
[2023-09-20] MEDS: ACETAMINOPHEN 500 MG TABLET (FP) PO ONE (13:54)
[2023-09-20 14:35] VITALS: BP 124/75; PULSE 79; RESP 19
== END 2023-09-20 16:35 | disposition home or self-care (01) ==
LOC: JER 12:56
DX: S89.91XA Unspecified injury of right lower leg, initial encounter (principal); M25.561 Pain in right knee; M79.661 Pain in right lower leg; R51.9 Headache, unspecified; R42 Dizziness and giddiness; M54.50 Low back pain, unspecified; W10.8XXA Fall (on) (from) other stairs and steps, initial encounter
CPT/HCPCS: 71046-TC-FY; 72220-TC-FY; 73562-TC-RT-FY; 73590-TC-RT-FY; 99284-25

== ENCOUNTER 2023-12-15 18:25 | Emergency (ER) | payer OTHER ==
[2023-12-15 18:35] VITALS: BP 123/84; PULSE 90; RESP 18; TEMP 98.8; BMI 39.1
[2023-12-15 19:54] LABS: EPI CELLS 16 /uL (0-25.1); HCG,QUALITATIVE URINE Negative; HYALINE CASTS 0 /uL (0-3.1); PH,URINE 7.5 (5.0-8.0); URINE APPEARANCE CLOUDY; URINE BACTERIA 2354 /uL (0-1359); URINE BILIRUBIN NEGATIVE (NEGATIVE); URINE COLOR YELLOW; URINE GLUCOSE (UA) NEGATIVE (NEGATIVE); URINE KETONE NEGATIVE (NEGATIVE); URINE LEUK ESTERASE 3+ (NEGATIVE); URINE NITRITE NEGATIVE (NEGATIVE); URINE PROTEIN 2+ (NEGATIVE); URINE RBC 712 /uL (0-23.9); URINE UROBILINOGEN 0.2 mg/dL (0.2-1.0); URINE WBC 1133 /uL (0-25.8)
== END 2023-12-15 20:09 | disposition home or self-care (01) ==
LOC: JERFT 18:25
DX: N30.90 Cystitis, unspecified without hematuria (principal); R30.0 Dysuria
CPT/HCPCS: 81003; 84703; 87086; 87186; 99283-25

== ENCOUNTER 2024-03-19 12:30 | Emergency (ER) | payer OTHER ==
[2024-03-19 12:49] VITALS: BP 128/86; PULSE 94; RESP 19; TEMP 98.2; BMI 49.8
[2024-03-19] MEDS ORDERED: SULFAMETHOXAZOLE/TRIMETHOPRIM 800MG/160MG D.S. TABLET ONE (14:30)
[2024-03-19] MEDS: SULFAMETHOXAZOLE/TRIMETHOPRIM 800MG/160MG D.S. TABLET PO ONE (14:35)
== END 2024-03-19 14:36 | disposition home or self-care (01) ==
LOC: JERFT 12:30
PROC: 0X9 Anatomical Regions, Upper Extremities, Drainage (ICD-10-PCS; principal; 2024-03-19)
DX: L02.411 Cutaneous abscess of right axilla (principal)
CPT/HCPCS: 87070; 87186; 87205; 99283-25